=== PATIENT | male | born 1985 | race Caucasian/White ===

== ENCOUNTER → 2016-03-12 | Outpatient (REF) | LOC: M LAB 11:24 | PROVIDERS: ATTEND Nurse Practitioner Adult Health | DX: Z02.1 Encounter for pre-employment examination (principal) ==

== ENCOUNTER → 2016-04-10 | Outpatient (REF) | payer OTHER ==
[2016-04-10 10:31] LABS: MEAN CORPUSCULAR HEMOGLOBIN 30.9 pg (27.0-33.0); MEAN CORPUSCULAR HGB CONC 33.5 g/dl (32.0-36.5); MEAN CORPUSCULAR VOLUME 92.1 fl (80.0-96.0); RED CELL DISTRIBUTION WIDTH 12.9 % (11.5-14.5); WHITE BLOOD COUNT 4.9 K/mm3 (4.0-10.0)
[2016-04-10 11:07] LABS: ALBUMIN 4.1 GM/DL (3.2-5.2); ALBUMIN/GLOBULIN RATIO 1.32 (1.00-1.93); ALKALINE PHOSPHATASE 89 U/L (45-117); ALT/SGPT 43 U/L (12-78); ANION GAP 8 MEQ/L (8-16); AST/SGOT 20 U/L (15-37); BILIRUBIN,TOTAL 0.6 MG/DL (0.2-1.0); BLOOD UREA NITROGEN 10 MG/DL (7-18); CALCIUM LEVEL 8.7 MG/DL (8.5-10.1); CARBON DIOXIDE LEVEL 29 MEQ/L (21-32); CHLORIDE LEVEL 106 MEQ/L (98-107); CREATININE FOR GFR 1.05 MG/DL (0.70-1.30); GLOMERULAR FILTRATION RATE > 60.0 (>60); GLUCOSE, FASTING 100 MG/DL (70-105); SODIUM LEVEL 143 MEQ/L (136-145); TOTAL PROTEIN 7.2 GM/DL (6.4-8.2)
== END ==
LOC: M SFHCPLAZ 09:18
PROVIDERS: ATTEND Family Medicine
DX: R94.5 Abnormal results of liver function studies (principal)

== ENCOUNTER → 2016-09-11 | Outpatient (REF) | payer OTHER ==
[2016-09-11 10:56] LABS: HEPATITIS B SURFACE ANTIBODY POSITIVE (POSITIVE)
== END ==
LOC: M SFHCPLAZ 08:40
PROVIDERS: ATTEND Family Medicine
DX: Z11.59 Encounter for screening for other viral diseases (principal); Z86.19 Personal history of other infectious and parasitic diseases; Z92.29 Personal history of other drug therapy

== ENCOUNTER → 2017-04-09 | Outpatient (REF) | payer OTHER ==
[2017-04-09 12:25] LABS: CHOLESTEROL LEVEL 261 MG/DL (<200); CHOLESTEROL RISK RATIO 6.365 (<5); HDL CHOLESTEROL 41 MG/DL (>40); LDL CHOLESTEROL 200.6 MG/DL (<100); NON-HDL-C 220 MG/DL; TRIGLYCERIDES LEVEL 97 MG/DL (<150)
== END ==
LOC: M SFHCPLAZ 10:16
DX: E78.2 Mixed hyperlipidemia (principal)
CPT/HCPCS: 80061

== ENCOUNTER → 2017-04-25 | Outpatient (REF) | payer OTHER ==
[2017-04-25 12:51] LABS: ALBUMIN 4.1 GM/DL (3.2-5.2); ALBUMIN/GLOBULIN RATIO 1.46 (1.00-1.93); ALKALINE PHOSPHATASE 102 U/L (45-117); ALT/SGPT 64 U/L (12-78); AST/SGOT 27 U/L (7-37); BILIRUBIN,DIRECT 0.1 MG/DL (0.0-0.2); BILIRUBIN,TOTAL 0.6 MG/DL (0.2-1.0); TOTAL PROTEIN 6.9 GM/DL (6.4-8.2)
== END ==
LOC: M SFHCPLAZ 10:12
DX: E78.5 Hyperlipidemia, unspecified (principal); R74.0 Nonspecific elevation of levels of transaminase and lactic acid dehydrogenase [LDH]
CPT/HCPCS: 80076

== ENCOUNTER → 2017-10-08 | Outpatient (REF) | payer OTHER ==
[2017-10-08 12:43] LABS: ALBUMIN 4.2 GM/DL (3.2-5.2); ALKALINE PHOSPHATASE 104 U/L (45-117); ALT/SGPT 61 U/L (12-78); ANION GAP 7 MEQ/L (8-16); AST/SGOT 29 U/L (7-37); BILIRUBIN,TOTAL 0.7 MG/DL (0.2-1.0); BLOOD UREA NITROGEN 15 MG/DL (7-18); CALCIUM LEVEL 9.1 MG/DL (8.5-10.1); CARBON DIOXIDE LEVEL 29 MEQ/L (21-32); CHLORIDE LEVEL 104 MEQ/L (98-107); CHOLESTEROL LEVEL 240 MG/DL (<200); CHOLESTEROL RISK RATIO 5.106 (<5); GLOMERULAR FILTRATION RATE > 60.0 (>60); GLUCOSE, FASTING 88 MG/DL (70-100); HDL CHOLESTEROL 47 MG/DL (>40); LDL CHOLESTEROL 178.6 MG/DL (<100); NON-HDL-C 193 MG/DL; POTASSIUM SERUM 4.1 MEQ/L (3.5-5.1); SODIUM LEVEL 140 MEQ/L (136-145); TOTAL PROTEIN 7.2 GM/DL (6.4-8.2); TRIGLYCERIDES LEVEL 72 MG/DL (<150)
== END ==
LOC: M SFHCPLAZ 08:09
DX: F32.1 Major depressive disorder, single episode, moderate (principal); E78.2 Mixed hyperlipidemia

== ENCOUNTER → 2018-04-15 | Outpatient (REF) | payer OTHER ==
[2018-04-15 18:45] LABS: ALBUMIN 4.5 GM/DL (3.2-5.2); ALT/SGPT 91 U/L (12-78); BILIRUBIN,TOTAL 0.7 MG/DL (0.2-1.0); BLOOD UREA NITROGEN 7 MG/DL (7-18); CALCIUM LEVEL 9.1 MG/DL (8.5-10.1); CARBON DIOXIDE LEVEL 29 MEQ/L (21-32); CHLORIDE LEVEL 107 MEQ/L (98-107); CHOLESTEROL LEVEL 168 MG/DL (<200); CHOLESTEROL RISK RATIO 3.169 (<5); GLOMERULAR FILTRATION RATE > 60.0 (>60); GLUCOSE, FASTING 80 MG/DL (70-100); HDL CHOLESTEROL 53 MG/DL (>40); LDL CHOLESTEROL 102 MG/DL (<100); NON-HDL-C 115 MG/DL; POTASSIUM SERUM 3.7 MEQ/L (3.5-5.1); SODIUM LEVEL 143 MEQ/L (136-145); TOTAL PROTEIN 7.6 GM/DL (6.4-8.2); TRIGLYCERIDES LEVEL 65 MG/DL (<150)
== END ==
LOC: M SFHCPLAZ 15:38
PROVIDERS: ATTEND Family Medicine
DX: E78.2 Mixed hyperlipidemia (principal)

== ENCOUNTER → 2018-07-15 | Outpatient (REF) | payer OTHER ==
[2018-07-18 14:09] LABS: AMPHETAMINE, URINE GC/MS 1815 ng/mL (Cutoff=500); CREATININE, URINE 34.3 mg/dL (20.0-300.0); METHAMPHETAMINE, URINE Negative (Cutoff=500)
== END ==
LOC: M SFHCPLAZ 10:04
PROVIDERS: ATTEND Family Medicine
DX: Z51.81 Encounter for therapeutic drug level monitoring (principal)

== ENCOUNTER → 2019-04-29 | Outpatient (REF) | payer BC ==
[2019-04-29 10:26] LABS: BLOOD UREA NITROGEN 10 MG/DL (7-18); CREATININE FOR GFR 0.97 MG/DL (0.70-1.30); GLUCOSE, FASTING 92 MG/DL (70-100)
[2019-04-29 10:27] LABS: ALBUMIN 4.3 GM/DL (3.2-5.2); ALT/SGPT 61 U/L (12-78); BILIRUBIN,TOTAL 0.6 MG/DL (0.2-1.0); CALCIUM LEVEL 9.1 MG/DL (8.5-10.1); CARBON DIOXIDE LEVEL 33 MEQ/L (21-32); CHLORIDE LEVEL 104 MEQ/L (98-107); CHOLESTEROL LEVEL 167 MG/DL (<200); CHOLESTEROL RISK RATIO 2.982 (<5); GLOMERULAR FILTRATION RATE > 60.0 (>60); HDL CHOLESTEROL 56 MG/DL (>40); LDL CHOLESTEROL 99 MG/DL (<100); NON-HDL-C 111 MG/DL; POTASSIUM SERUM 4.4 MEQ/L (3.5-5.1); SODIUM LEVEL 141 MEQ/L (136-145); TOTAL PROTEIN 7.2 GM/DL (6.4-8.2); TRIGLYCERIDES LEVEL 61 MG/DL (<150)
== END ==
LOC: M SFHCPLAZ 07:51
PROVIDERS: ATTEND Family Medicine
DX: E78.2 Mixed hyperlipidemia (principal)

== ENCOUNTER → 2019-06-07 | Outpatient (CLI) | payer BC | LOC: M WUC 09:20 | PROVIDERS: ATTEND Family Medicine Adult Medicine | DX: R76.11 Nonspecific reaction to tuberculin skin test without active tuberculosis (principal) ==

== ENCOUNTER → 2020-03-27 | Outpatient (REF) | payer BC ==
[2020-03-27 13:00] LABS: CHOLESTEROL RISK RATIO 2.91 (<5)
[2020-03-27 13:26] LABS: TOTAL 25(OH) VITAMIN D 49.5 NG/ML (30.0-100.0)
== END ==
LOC: M SFHCPLAZ 08:41
PROVIDERS: ATTEND Family Medicine
DX: E78.2 Mixed hyperlipidemia (principal); E55.9 Vitamin D deficiency, unspecified